=== PATIENT | male | born 1995 | race Caucasian/White ===

== ENCOUNTER 2020-12-17 06:30 | Emergency (ER) | payer SELFPAY ==
[~2020-12-17] VITALS: Ht 182.9 cm; Wt 72.6 kg
[2020-12-17 06:41] VITALS: BP 107/67
--- NOTE | 2020-12-17 06:45 | NUR ---
BIB WHEELCHAIR TO ER BED 8
--- NOTE | 2020-12-17 06:50 | NUR ---
25 YO/M BIB SELF W CO SHARP R SIDED FLANK PAIN 03/16 X2 WEEKS THAT WORSENED THIS MORNING AND WORSENS WHEN HE LAYS BACK. PATIENT REPORTS HE HAS ALSO BEEN EXPERIENCING HOT/COLD FLASHES, NAUSEA DENIES VOMITING AND LIGHTHEADEDNESS, DENIES LOC. PATIENT DENIES ANY URINATION PROBLEMS. DENIES CP, FEVER, DIARRHEA. PATIENT LAYING IN BED, HOB ELEVATED, BREATHING EVEN AND UNLABORED. NAD NOTED, WILL CONTINUE TO MONITOR. PMH:DENIES NKA
[2020-12-17] MEDS ORDERED: diazePAM 5 MG TAB PO ONE (07:00)
[2020-12-17] MEDS ORDERED: KETOROLAC 60 MG/2 ML VIAL IM ONE (07:00)
--- NOTE | 2020-12-17 07:10 | NUR ---
Report given to SANGITA Diamond for transfer of care at this time.
--- NOTE | 2020-12-17 07:30 | NUR ---
Received report from Cydney QUESADA, assumed care at this time.
[2020-12-17 08:03] LABS: BASOPHILS # (AUTO) 0.1 K/uL (0.00-0.22); BASOPHILS % (AUTO) 0.9 % (0.0-2.0); EOSINOPHILS # (AUTO) 0.3 K/uL (0-0.4); EOSINOPHILS % (AUTO) 4.1 % (0.0-4.0); HEMATOCRIT 40.4 % (36-52); HEMOGLOBIN 13.7 g/dL (12.0-18.0); LYMPHOCYTES # (AUTO) 1.2 K/uL (2.0-11.5); LYMPHOCYTES % (AUTO) 14.4 % (20.5-51.1); MEAN CORPUSCULAR HEMOGLOBIN 31 pg (27-31); MEAN CORPUSCULAR HGB CONC 34 g/dL (33-37); MEAN CORPUSCULAR VOLUME 92.2 fL (80-94); MONOCYTES # (AUTO) 0.6 K/uL (0.8-1.0); MONOCYTES % (AUTO) 8.1 % (1.7-9.3); NEUTROPHILS # (AUTO) 5.8 K/uL (1.8-7.7); NEUTROPHILS % (AUTO) 72.5 % (42.2-75.2); PLATELET COUNT (AUTO) 224 K/uL (140-450); RED BLOOD CELL COUNT(AUTO) 4.38 MIL/uL (4.20-6.10); RED CELL DISTRIBUTION WIDTH 12.8 % (11.6-13.7)
[2020-12-17 08:16] LABS: ALBUMIN 4.5 g/dL (3.4-5.0); ANION GAP 14.4 (8-16); CARBON DIOXIDE 24.7 mmol/L (21-32); CREATININE 0.8 mg/dL (0.6-1.3); POTASSIUM 4.1 mmol/L (3.5-5.1); TOTAL BILIRUBIN 0.5 mg/dL (0.0-1.0)
--- NOTE | 2020-12-17 08:45 | NUR ---
Urine sample collected and walked to lab.
[2020-12-17 09:02] LABS: APPEARANCE,URINE CLEAR (CLEAR); BILIRUBIN,URINE NEGATIVE (NEGATIVE); BLOOD, URINE NEGATIVE (NEGATIVE); COLOR,URINE YELLOW (YELLOW); LEUKOCYTE ESTERASE ,URINE NEGATIVE (NEGATIVE); NITRITE, URINE NEGATIVE (NEGATIVE); PH,URINE 5.5 (5.0-9.0); UGLUCOSE NEGATIVE (NEGATIVE)
[2020-12-17 09:14] LABS: BARBITURATE, URINE NEGATIVE ng/ml (NEG <=200); BENZODIAZEPINE, URINE POSITIVE ng/mL (NEG <=200); CANNABINOID, URINE POSITIVE ng/mL (NEG <=50); COCAINE, URINE NEGATIVE ng/mL (NEG <=300); OPIATE, URINE NEGATIVE ng/mL (NEG <=2000); PHENCYCLIDINE SCREEN,URINE NEGATIVE ng/mL (NEG <=25)
[2020-12-17] MEDS ORDERED: NAPR-54 PO (09:39)
[2020-12-17] MEDS ORDERED: DIAZ5TAB7 PO (09:39)
--- NOTE | 2020-12-17 10:58 | NUR ---
Patient stated he no longer wanted to wait in the bed, states "I'll be in the lobby waiting for my papers."
[2020-12-17 11:15] VITALS: BP 107/67
--- NOTE | 2020-12-17 11:15 | NUR ---
LEFT WITHOUT DISCHARGE PAPERS.
--- NOTE | 2020-12-17 11:16 | NUR ---
2 PRESCRIPTIONS SENT ELECTRONICALLY TO PHARMACY- [facility]. PT LEFT WITHOUT D/C PAPERS AND INFORMATION ABOUT MEDICATIONS/DIAGNOSIS.
== END 2020-12-17 10:58 | disposition home or self-care (01) ==
LOC: MED 06:30
DX: R10.9 Unspecified abdominal pain (principal); Z79.899 Other long term (current) drug therapy
CPT/HCPCS: 36415; 71045; 80053; 80305; 81003; 83690; 85025; 96372; 99284; J1885

== ENCOUNTER 2022-05-13 09:21 | Emergency (ER) | payer OTHER ==
[~2022-05-13] VITALS: Ht 177.8 cm; Wt 74.8 kg
[~2022-05-13 09:21] MED LIST: DIAZ5TAB8 PO; NAPR-54 PO
[2022-05-13 09:56] VITALS: BP 129/80
[2022-05-13] MEDS ORDERED: BACITRACIN OINT 500 UNITS/GM PKT TP ONE ×2 (10:23→10:30)
--- NOTE | 2022-05-13 10:23 | NUR ---
Patient discharged with v/s stable. Written and verbal after care instructions given. Patient verbalized understanding. Ambulatory with steady gait. All questions addressed prior to discharge. Advised to follow up with PMD.
--- NOTE | 2022-05-13 10:54 | NUR ---
Chart checked and completed. The patient's care was reviewed and supervised by Ayaka Hong RN.
== END 2022-05-13 10:23 | disposition home or self-care (01) ==
LOC: MED 09:21
DX: S81.812A Laceration without foreign body, left lower leg, initial encounter (principal); Z79.899 Other long term (current) drug therapy; Z79.1 Long term (current) use of non-steroidal anti-inflammatories (NSAID); X58.XXXA Exposure to other specified factors, initial encounter; Y93.51 Activity, roller skating (inline) and skateboarding; Y92.331 Roller skating rink as the place of occurrence of the external cause; Y99.8 Other external cause status
CPT/HCPCS: 99282

== ENCOUNTER 2022-06-06 07:54 | Emergency (ER) | payer OTHER ==
[~2022-06-06] VITALS: Ht 180.3 cm; Wt 76.7 kg
[2022-06-06 08:11] VITALS: BP 150/68
--- NOTE | 2022-06-06 08:15 | NUR ---
PT AMBULATED TO ER BED 5
--- NOTE | 2022-06-06 08:24 | NUR ---
Dr. Bull evaluating patient at bedside.
[2022-06-06] MEDS ORDERED: NACL 0.9% 1,000 ML IV SCH (08:30)
[2022-06-06] MEDS ORDERED: ACETAMINOPHEN 325 MG TAB PO ONE (08:30)
[2022-06-06] MEDS ORDERED: FAMOTIDINE 20 MG/2 ML VIAL IVP ONE (08:30)
[2022-06-06] MEDS ORDERED: diphenhydrAMINE 50 MG/ML VIAL IVP ONE (08:30)
[2022-06-06] MEDS ORDERED: HALOPERIDOL IM 5 MG/ML VIAL IVP ONE (08:30)
--- NOTE | 2022-06-06 08:55 | NUR ---
26 y/o male bib self with c/o abdominal pain x yesterday. Patient also has nausea and vomiting. Patient states he smokes marijuana ocassionally and smoked last night. Patient's abdominal pain radiates from his right quadrant to epigastric pain to left quadrant pain. Patient reports seeing a specialist for his esophagus. Denies fever or chills. Medical History: Denies NKDA
[2022-06-06 09:09] LABS: BASOPHILS % (AUTO) 0.2 % (0.0-2.0); EOSINOPHILS % (AUTO) 0.2 % (0.0-4.0); HEMATOCRIT 44.3 % (36-52); HEMOGLOBIN 15.3 g/dL (12.0-18.0); LYMPHOCYTES # (AUTO) 0.4 K/uL (2.0-11.5); LYMPHOCYTES % (AUTO) 3.2 % (20.5-51.1); MEAN CORPUSCULAR HEMOGLOBIN 31 pg (27-31); MEAN CORPUSCULAR HGB CONC 35 g/dL (33-37); MEAN CORPUSCULAR VOLUME 88.8 fL (80-94); MONOCYTES # (AUTO) 0.6 K/uL (0.8-1.0); MONOCYTES % (AUTO) 4.7 % (1.7-9.3); NEUTROPHILS # (AUTO) 12.6 K/uL (1.8-7.7); NEUTROPHILS % (AUTO) 91.7 % (42.2-75.2); PLATELET COUNT (AUTO) 240 K/uL (140-450); RED BLOOD CELL COUNT(AUTO) 4.98 MIL/uL (4.20-6.10); RED CELL DISTRIBUTION WIDTH 12.8 % (11.6-13.7); WHITE BLOOD COUNT (AUTO) 13.7 K/uL (4.8-10.8)
[2022-06-06 09:23] LABS: ALBUMIN 4.8 g/dL (3.4-5.0); ANION GAP 9.1 (8-16); CARBON DIOXIDE 22.6 mmol/L (21-32); POTASSIUM 3.7 mmol/L (3.5-5.1); TOTAL BILIRUBIN 1.4 mg/dL (0.0-1.0)
--- NOTE | 2022-06-06 10:25 | NUR ---
Patient is resting on bed, respirations even and unlabored. No signs of distress noted.
[2022-06-06 11:32] LABS: APPEARANCE,URINE CLEAR (CLEAR); BILIRUBIN,URINE NEGATIVE (NEGATIVE); BLOOD, URINE NEGATIVE (NEGATIVE); COLOR,URINE YELLOW (YELLOW); LEUKOCYTE ESTERASE ,URINE NEGATIVE (NEGATIVE); NITRITE, URINE NEGATIVE (NEGATIVE); PH,URINE 7.5 (5.0-9.0); UGLUCOSE NEGATIVE (NEGATIVE)
[2022-06-06 11:43] LABS: BARBITURATE, URINE NEGATIVE ng/ml (NEG <=200); BENZODIAZEPINE, URINE NEGATIVE ng/mL (NEG <=200); CANNABINOID, URINE POSITIVE ng/mL (NEG <=50); COCAINE, URINE NEGATIVE ng/mL (NEG <=300); OPIATE, URINE NEGATIVE ng/mL (NEG <=2000); PHENCYCLIDINE SCREEN,URINE NEGATIVE ng/mL (NEG <=25)
[2022-06-06 11:58] LABS: ANION GAP 18.9 (8-16); CARBON DIOXIDE 21.1 mmol/L (21-32)
--- NOTE | 2022-06-06 13:38 | NUR ---
RECEIVED CALL FROM [facility] REGARDING LAB DELAY FOR FOR BMP. ANOTHER ORDER WAS PLACED AND PT HAS TO BE DRAWN FOR THE 3RD TIME. DR RICHELLE TEIXEIRA.
[2022-06-06] MEDS ORDERED: ONDA-188 SL (13:46)
--- NOTE | 2022-06-06 13:54 | NUR ---
Lab at bedside.
--- NOTE | 2022-06-06 13:54 | NUR ---
Patient was offered snacks.
[2022-06-06 14:02] LABS: ANION GAP 14.9 (8-16); CARBON DIOXIDE 21.2 mmol/L (21-32); CREATININE 0.8 mg/dL (0.6-1.3); POTASSIUM 4.1 mmol/L (3.5-5.1)
[2022-06-06 14:38] VITALS: BP 115/67
--- NOTE | 2022-06-06 14:38 | NUR ---
Patient discharged with v/s stable. Written and verbal after care instructions given. Patient alert, oriented and verbalized understanding of instructions. Ambulatory with steady gait. All questions addressed prior to discharge. ID band removed. Patient advised to follow up with PMD. Rx of Zofran given. Opportunity to ask questions provided and answered.
== END 2022-06-06 14:28 | disposition home or self-care (01) ==
LOC: MED 07:54
DX: R10.9 Unspecified abdominal pain (principal); R11.2 Nausea with vomiting, unspecified; F12.90 Cannabis use, unspecified, uncomplicated; F10.20 Alcohol dependence, uncomplicated; Z79.899 Other long term (current) drug therapy
CPT/HCPCS: 36415; 74177; 80048; 80053; 80305; 81003; 83690; 85025; 93005; 96361; 96374; 96375; 99285; G0482; J1200; J1630; J3490; Q9967

== ENCOUNTER 2023-07-09 19:32 | Emergency (ER) | payer OTHER ==
[~2023-07-09] VITALS: Ht 182.9 cm; Wt 77.1 kg
[~2023-07-09 19:32] MED LIST changes: +ONDA-188 SL
[2023-07-09 19:39] VITALS: BP 135/75; PULSE 72; RESP 16; TEMP 97.4; O2SAT 100
[2023-07-09] MEDS ORDERED: ONDANSETRON 4 MG/2 ML VIAL IVP ONE (19:55)
[2023-07-09] MEDS ORDERED: KETOROLAC 30 MG/ML VIAL IVP ONE (19:55)
[2023-07-09] MEDS ORDERED: NACL 0.9% 1,000 ML IV SCH (19:55)
[2023-07-09 20:22] LABS: BASOPHILS # (AUTO) 0.1 K/uL (0.00-0.22); BASOPHILS % (AUTO) 0.4 % (0.0-2.0); EOSINOPHILS # (AUTO) 0.3 K/uL (0-0.4); EOSINOPHILS % (AUTO) 2.3 % (0.0-4.0); HEMATOCRIT 44.2 % (36-52); HEMOGLOBIN 15.1 g/dL (12.0-18.0); LYMPHOCYTES % (AUTO) 7.7 % (20.5-51.1); MEAN CORPUSCULAR HEMOGLOBIN 31 pg (27-31); MEAN CORPUSCULAR HGB CONC 34 g/dL (33-37); MEAN CORPUSCULAR VOLUME 90.7 fL (80-94); MONOCYTES # (AUTO) 0.9 K/uL (0.8-1.0); MONOCYTES % (AUTO) 6.5 % (1.7-9.3); NEUTROPHILS # (AUTO) 11.4 K/uL (1.8-7.7); NEUTROPHILS % (AUTO) 83.1 % (42.2-75.2); PLATELET COUNT (AUTO) 263 K/uL (140-450); RED BLOOD CELL COUNT(AUTO) 4.87 MIL/uL (4.20-6.10); RED CELL DISTRIBUTION WIDTH 12.7 % (11.6-13.7); WHITE BLOOD COUNT (AUTO) 13.7 K/uL (4.8-10.8)
[2023-07-09 20:37] LABS: ANION GAP 10.2 (8-16); CALCIUM 9.5 mg/dL (8.5-10.1); CARBON DIOXIDE 30.7 mmol/L (21-32); CREATININE 0.9 mg/dL (0.6-1.3); POTASSIUM 3.9 mmol/L (3.5-5.1)
[2023-07-09 20:40] LABS: ALBUMIN 4.5 g/dL (3.4-5.0); BILIRUBIN,DIRECT 0.1 mg/dL (0.0-0.3); TOTAL BILIRUBIN 0.6 mg/dL (0.0-1.0); TOTAL PROTEIN, SERUM 8.6 g/dL (6.4-8.2)
== END 2023-07-09 21:12 | disposition home or self-care (01) ==
LOC: MED 19:32
DX: R10.13 Epigastric pain (principal); R11.2 Nausea with vomiting, unspecified; R19.7 Diarrhea, unspecified; Z79.899 Other long term (current) drug therapy
CPT/HCPCS: 36415; 80048; 80076; 83690; 85025; 96360; 99283; J7030